=== PATIENT | male | born 1965 | race Caucasian/White ===

== ENCOUNTER → 2020-04-06 | Outpatient (CLI) | payer MEDICARE ==
[2017-01-16 15:00] VITALS: BP 124/79
[~2020-04-06] MED LIST: AMLO-186 PO; BUPR300T92 PO; CHOL100014 PO; CRESTOR40 MG PO; CYCL10TA2 PO; FAMO20TA5 PO; FERR-36 PO; LEVO125T5 PO; METF10007 PO; OMEP40CA7 PO; SILD20TA4 PO; TACR4TAB PO; TADA5TAB PO; TRAM50TA PO; TRAZ-118 PO; ZINC50TA39 PO
== END ==
LOC: LAB 13:07
PROVIDERS: ATTEND Internal Medicine Gastroenterology
DX: Z01.812 Encounter for preprocedural laboratory examination (principal); Z12.11 Encounter for screening for malignant neoplasm of colon; Z20.828 Contact with and (suspected) exposure to other viral communicable diseases
CPT/HCPCS: U0003

== ENCOUNTER → 2020-04-08 | Day surgery (SDC) | payer MEDICARE ==
[~2020-04-08] MED LIST changes: +IV RINGERS,LACTATED 1000ML 1,000 ML IV ONE; +OMEP40CA45 PO; -OMEP40CA7 PO; +PROPOFOL 10 MG/ML (20ML) VIAL. IV ONE
[2020-04-08 10:50] VITALS: BP 112/64
--- NOTE | 2020-04-08 10:52 | PREOP HP ---
DATE OF SERVICE: 04/08/2020 DATE OF PROCEDURE: 04/08/2020 REQUESTING PHYSICIAN: Leandra Castro MD PRIMARY CARE PHYSICIAN: Leandra Castro MD REASON FOR PROCEDURE: Colorectal cancer screening. HISTORY OF PRESENT ILLNESS: This is a 54-year-old gentleman who presents today for colorectal cancer screening. He thinks that he has had a colonoscopy in the past that was unrevealing. He denies any family history of colon cancer. PAST MEDICAL HISTORY: 1. Kidney transplant. 2. Reflux. 3. Paroxysmal atrial fibrillation. 4. Hypertension. 5. Sleep apnea. 6. Anxiety. 7. Hyperlipidemia. 8. Vitamin D deficiency. 9. Type 2 diabetes. 10. Hypothyroidism. PAST SURGICAL HISTORY: 1. Rotator cuff repair. 2. Hernia repair. 3. Transplant of his kidney. ALLERGIES: PENICILLIN, WHICH CAUSES A RASH. MEDICATIONS: MAR reviewed. SOCIAL HISTORY: He denies tobacco, drinks occasionally and denies IV drug abuse. FAMILY MEDICAL HISTORY: He denies colorectal cancer. REVIEW OF SYSTEMS: A 13-point review of systems was done. It is positive as per HPI and otherwise negative. PHYSICAL EXAMINATION: VITAL SIGNS: He is afebrile and his vital signs are stable. GENERAL: He is a well-developed, well-nourished male, in no apparent distress. HEENT: Oropharynx is clear. CARDIOVASCULAR: S1, S2. LUNGS: Clear. ABDOMEN: Normoactive bowel sounds, soft, nontender, nondistended. EXTREMITIES: No edema. NEUROLOGIC: Awake, alert and oriented x 3. ASSESSMENT AND PLAN: Colorectal cancer screening. The risks and benefits of the procedure including bleeding, perforation, non-diagnosis and sedation were explained and he has agreed to proceed. Thank you for allowing me to participate in the care of this patient. JORDAN CHAO MD DR: DEBRA/jane JOB#: [id number] / [id number]
== END | disposition home or self-care (01) ==
LOC: ENDOS 08:49
PROVIDERS: ATTEND Internal Medicine Gastroenterology
DX: Z12.11 Encounter for screening for malignant neoplasm of colon (principal); K64.8 Other hemorrhoids; I48.0 Paroxysmal atrial fibrillation; F41.9 Anxiety disorder, unspecified; I12.9 Hypertensive chronic kidney disease with stage 1 through stage 4 chronic kidney disease, or unspecified chronic kidney disease; E11.22 Type 2 diabetes mellitus with diabetic chronic kidney disease; N18.9 Chronic kidney disease, unspecified; E03.9 Hypothyroidism, unspecified; G47.30 Sleep apnea, unspecified; E78.00 Pure hypercholesterolemia, unspecified; K21.9 Gastro-esophageal reflux disease without esophagitis; Z94.0 Kidney transplant status; Z79.899 Other long term (current) drug therapy; Z98.890 Other specified postprocedural states; Z87.891 Personal history of nicotine dependence; Z79.82 Long term (current) use of aspirin; Z79.84 Long term (current) use of oral hypoglycemic drugs; Z88.0 Allergy status to penicillin; Z72.89 Other problems related to lifestyle
CPT/HCPCS: G0121; J2704; 45378